=== PATIENT | female | born 1985 | race Caucasian/White ===

== ENCOUNTER 2021-04-12 15:49 | Emergency (ER) | payer OTHER ==
[2021-04-12] MEDS ORDERED: CYCLOBENZAPRINE10 MG PO (22:23)
[2021-04-12] MEDS ORDERED: MOBIC15 MG PO (22:23)
== END 2021-04-12 22:21 | disposition home or self-care (01) ==
LOC: ER1 15:49
DX: S13.4XXA Sprain of ligaments of cervical spine, initial encounter (principal); S16.1XXA Strain of muscle, fascia and tendon at neck level, initial encounter; F17.210 Nicotine dependence, cigarettes, uncomplicated; V49.9XXA Car occupant (driver) (passenger) injured in unspecified traffic accident, initial encounter
CPT/HCPCS: 70450; 71045; 72125; 99284